=== PATIENT | male | born 1945 | race Caucasian/White ===

== ENCOUNTER 2018-05-13 20:37 | Inpatient (IN) | payer MEDICAID ==
[2018-05-13 21:40] VITALS: BP 95/50
--- NOTE | 2018-05-13 21:40 | NUR ---
URINE SPECIMEN SENT TO LAB
[2018-05-13 21:51] LABS: BASOPHILS 0.2 % (0-2); EOSINOPHILS 0.9 % (0-7); HEMATOCRIT 33.7 % (42.0-54.0); HEMOGLOBIN 10.8 g/dL (13.5-17.5); IMMATURE GRANULOCYTES 0.3 % (0-5); LYMPHOCYTES 2.6 % (15-50); MCH 31.8 pg (26.0-34.0); MCV 99.1 fL (80.0-100.0); MEAN PLATELET VOLUME 9.5 fL (7.4-10.4); MONOCYTES 7.7 % (2-11); NEUTROPHILS 88.3 % (40-80); PLATELET COUNT 160 10x3/uL (130-400); RDW 16.6 % (11.5-14.5); WBC 12.9 10x3/uL (4.8-10.8)
[2018-05-13 22:02] LABS: APPEARANCE HAZY (CLEAR); BILIRUBIN NEGATIVE (NEGATIVE); COLOR YELLOW (YELLOW); GLUCOSE NEGATIVE (NEGATIVE); KETONE NEGATIVE (NEGATIVE); NITRITE NEGATIVE (NEGATIVE); PROTEIN 1+ mg/dL (NEGATIVE); UROBILINOGEN NORMAL (NORMAL)
[2018-05-13 22:03] LABS: BACTERIA MANY /hpf (NONE SEEN); RED CELLS - URINE 0-5 /hpf (0-5); WHITE CELLS - URINE >50 /hpf (0-5)
[2018-05-13 22:04] LABS: UDS - AMPHET NEGATIVE QUAL (NEGATIVE); UDS - BARB NEGATIVE QUAL (NEGATIVE); UDS - BENZO NEGATIVE QUAL (NEGATIVE); UDS - COCAINE NEGATIVE QUAL (NEGATIVE); UDS - OPIATE NEGATIVE QUAL (NEGATIVE); UDS - PCP NEGATIVE QUAL (NEGATIVE); UDS - THC NEGATIVE QUAL (NEGATIVE)
[2018-05-13 22:15] LABS: ALBUMIN 2.3 g/dL (3.4-5.0); ALKALINE PHOSPHATASE 76 U/L (46-116); ALT (SGPT) 20 U/L (10-68); BILIRUBIN - TOTAL 0.37 mg/dL (0.2-1.3); CALC OSMOLALITY 298 mosm/kg (275-300); CALCIUM 8.9 mg/dL (8.5-10.1); CARBON DIOXIDE 23.3 mmol/L (21.0-32.0); CHLORIDE - SERUM 106 mmol/L (98-107); CREATININE - SERUM 2.3 mg/dL (0.6-1.3); GLUCOSE 134 mg/dL (74-106); POTASSIUM - SERUM 4.8 mmol/L (3.5-5.1); PROTEIN - SERUM 6.7 g/dL (6.4-8.2); SODIUM 140 mmol/L (136-145); UREA NITROGEN 62 mg/dL (7-18); eGFR NON AFRICAN AMERICAN 30 mL/min (90-120)
[2018-05-13 22:25] LABS: AMYLASE - SERUM 25 U/L (25-115); CKMB 0.5 U/L (0.0-3.6); CREATINE KINASE 20 UL (21-232); LIPASE 137 U/L (73-393); MAGNESIUM - SERUM 2.1 mg/dL (1.8-2.4); TROPONIN-I < 0.017 ng/mL (0.000-0.060)
--- NOTE | 2018-05-13 22:30 | NUR ---
PT SLEEPING ON BED, NO S/S OF ACUTE DISTRESS NOTED AT THIS TIME.
--- NOTE | 2018-05-13 23:15 | NUR ---
PT SLEEPING ON BED, NO S/S OF ACUTE DISTRESS NOTED.
[2018-05-14] VITALS: BP 97/50
--- NOTE | 2018-05-14 00:08 | NUR ---
REPORT RECEIVED FROM EMMANUEL BOSE
--- NOTE | 2018-05-14 00:20 | NUR ---
ARRIVED TO FLOOR VIA STRETCHER, ACCOMPANIEDY BY HOSPITAL STAFF.
[2018-05-14 04:00] VITALS: BP 116/65
[2018-05-14] MEDS ORDERED: FLOMAX0.4 MG PO (04:25)
[2018-05-14] MEDS ORDERED: IBUPROFEN600 MG PO (04:25)
[2018-05-14] MEDS ORDERED: LOPRESSOR25 MG PO (04:26)
[2018-05-14] MEDS ORDERED: REMERON15 MG PO (04:27)
[2018-05-14] MEDS ORDERED: LIPITOR20 MG PO (04:27)
[2018-05-14] MEDS ORDERED: MELATONIN 3 MG1 TAB PO (04:28)
[2018-05-14] MEDS ORDERED: BAYER CHEWABLE81 MG PO (04:29)
[2018-05-14] MEDS ORDERED: ACETAMINOPHEN325 MG PO (04:29)
[2018-05-14 06:32] LABS: BASOPHILS 0.2 % (0-2); EOSINOPHILS 1.5 % (0-7); HEMATOCRIT 35.5 % (42.0-54.0); HEMOGLOBIN 11.3 g/dL (13.5-17.5); IMMATURE GRANULOCYTES 0.2 % (0-5); LYMPHOCYTES 2.3 % (15-50); MCH 31.6 pg (26.0-34.0); MCHC 31.8 g/dL (31.0-37.0); MCV 99.2 fL (80.0-100.0); MEAN PLATELET VOLUME 9.5 fL (7.4-10.4); MONOCYTES 8.2 % (2-11); NEUTROPHILS 87.6 % (40-80); PLATELET COUNT 175 10x3/uL (130-400); RBC 3.58 10x6/uL (4.20-6.10); RDW 16.5 % (11.5-14.5)
[2018-05-14 06:58] LABS: ALBUMIN 2.2 g/dL (3.4-5.0); ANION GAP 19.4 mmol/L (8-16); BILIRUBIN - TOTAL 0.3 mg/dL (0.2-1.3); CARBON DIOXIDE 20.5 mmol/L (21.0-32.0); CREATININE - SERUM 2.2 mg/dL (0.6-1.3); POTASSIUM - SERUM 4.9 mmol/L (3.5-5.1); PROTEIN - SERUM 6.9 g/dL (6.4-8.2)
[2018-05-14 09:06] VITALS: BP 124/65
--- NOTE | 2018-05-14 10:25 | NUR ---
RESTS IN BED WITH EYES CLOSED. CALL LIGHT IN REACH. REVIEWED AND AGREE WITH ASSESMENT.
[2018-05-14 12:49] VITALS: BP 128/559
[2018-05-14 13:41] LABS: % SATURATION 10 % (15-55); IRON 15 ug/dl (35-150); TOTAL IRON BIND CAPACITY 137 ug/dl (260-445); UNSAT IRON BIND CAPACITY 122 ug/dl (150-375)
[2018-05-14 15:17] VITALS: Wt 64.5 kg
[2018-05-14 16:59] VITALS: BP 117/60
--- NOTE | 2018-05-14 18:38 | NUR ---
WITHOUT CHANGES OR DISTRESS AT THIS TIME.
--- NOTE | 2018-05-14 19:28 | NUR ---
PT ASLEEP. MOUTH OPEN. NO S/S OF DISTRESS. BEDLOW AND CALL LIGHT IN REACH. NAME AND DATE PLACED ON BOARD. PT AROUSES TO TOUCH AND VERBAL STIMULI. DENIES ANY NEEDS. BEDLOW AND CALL LIGHT IN REACH. WILL CPOC
[2018-05-14 20:00] VITALS: BP 97/48
--- NOTE | 2018-05-14 23:24 | NUR ---
PT DOESNT WANT ANY MEDICATIONS AT THIS TIME. PT SAID NO AND WENT BACK TO SLEEP. PT HAS NO S/S OF DISTRESS. DENIES ANY NEEDS. INHALE WHEEZES. PT BEDLOW AND CALL LIGHT INREACH. ROCEPHIN TO RIGHT WRIST. PT WILL CALL FOR ASSIST WHEN NEEDED. WILL CPOC
--- NOTE | 2018-05-15 03:55 | NUR ---
PT AWAKE AND ALERT. RIGHT WRIST IV OCCULEDED 10 TIMES WITHIN 30 MINS DUE TO PT CEREBAL PASLY. PT ASKED FOR A BREAK FROM THE BEEPING. UNHOOKED PT FOR A COUPLE HOURS. FLUSHED IV AND PLACED SWAB CAP. PT WILL CALL FOR ASSIST WHEN NEEDED. NOUSIHMENT WITHIN REACH. WILL CPOC
[2018-05-15 04:00] VITALS: BP 104/59
[2018-05-15 05:05] LABS: BASOPHILS 0.2 % (0-2); EOSINOPHILS 4.5 % (0-7); HEMATOCRIT 32.3 % (42.0-54.0); HEMOGLOBIN 10.4 g/dL (13.5-17.5); IMMATURE GRANULOCYTES 0.3 % (0-5); LYMPHOCYTES 7.9 % (15-50); MCH 31.7 pg (26.0-34.0); MCHC 32.2 g/dL (31.0-37.0); MCV 98.5 fL (80.0-100.0); MEAN PLATELET VOLUME 9.9 fL (7.4-10.4); MONOCYTES 9.4 % (2-11); NEUTROPHILS 77.7 % (40-80); PLATELET COUNT 165 10x3/uL (130-400); RBC 3.28 10x6/uL (4.20-6.10); RDW 16.3 % (11.5-14.5); WBC 10.2 10x3/uL (4.8-10.8)
[2018-05-15 05:25] LABS: ANION GAP 14.7 mmol/L (8-16); CALCIUM 8.7 mg/dL (8.5-10.1); CARBON DIOXIDE 22.6 mmol/L (21.0-32.0); CREATININE - SERUM 1.9 mg/dL (0.6-1.3); POTASSIUM - SERUM 4.3 mmol/L (3.5-5.1)
[2018-05-15 08:21] LABS: FOLATE (FOLIC ACID) - SERUM 9.2 ng/mL (>3.0)
[2018-05-15 08:51] VITALS: BP 119/53
--- NOTE | 2018-05-15 09:00 | NUR ---
PT RESTING IN BED. SHIFT ASSESSMENT PERFORMED. AM MEDICATIONS GIVEN ORDERED. NO COMPLICATIONS NOTED. COLOSTOMY EMPTIED, LIQUID STOOL NOTED.
--- NOTE | 2018-05-15 11:31 | NUR ---
PIV TO RIGHT FA INFILTRATED. PIV REMOVED WITH CATHETER TIP INTACT. 20G PIV RESITED X1 ATTEMPT TO RIGHT FA. PT TOLERATED WELL
[2018-05-15 12:48] VITALS: BP 90/45
--- NOTE | 2018-05-15 13:52 | NUR ---
STOOL SPECIMEN COLLECTED VIA PT COLOSTOMY. PT STICKER ATTACHED TO SPECIMEN CUP AT BEDSIDE. SPECIMEN SENT TO LAB.
[2018-05-15 16:49] VITALS: BP 116/57
--- NOTE | 2018-05-15 19:34 | NUR ---
RESUMED CARE OF PT, LYING IN BED RESPIRATIONS EVEN AND UNLABORED ON 2LPM VIA NC. 87 SR ON TELEMETRY. RIGHT FOREARM INFUSING NS @ 100. BROWNING TO GRAVITY AND ILLEOSTOMY WNL. CALL LIGHT IN REACH. SEE NURSE ASSESSMENT. NO NEEDS VOCIED AT THIS TIME.
[2018-05-15 20:00] VITALS: BP 112/63
[2018-05-16] VITALS: BP 96/51
[2018-05-16 04:00] VITALS: BP 109/54
[2018-05-16 06:06] LABS: BASOPHILS 0.4 % (0-2); EOSINOPHILS 3.7 % (0-7); HEMATOCRIT 28.9 % (42.0-54.0); HEMOGLOBIN 9.3 g/dL (13.5-17.5); IMMATURE GRANULOCYTES 0.7 % (0-5); LYMPHOCYTES 7.5 % (15-50); MCHC 32.2 g/dL (31.0-37.0); MEAN PLATELET VOLUME 9.3 fL (7.4-10.4); MONOCYTES 16.1 % (2-11); NEUTROPHILS 71.6 % (40-80); PLATELET COUNT 138 10x3/uL (130-400); RDW 15.9 % (11.5-14.5); WBC 8.4 10x3/uL (4.8-10.8)
[2018-05-16 06:22] LABS: ANION GAP 15.5 mmol/L (8-16); CARBON DIOXIDE 18.4 mmol/L (21.0-32.0); CREATININE - SERUM 1.7 mg/dL (0.6-1.3); POTASSIUM - SERUM 3.9 mmol/L (3.5-5.1)
[2018-05-16 06:39] LABS: MCV 96.3 fL (80.0-100.0)
[2018-05-16 08:56] VITALS: BP 99/48
--- NOTE | 2018-05-16 09:00 | NUR ---
PT RESTING IN BED, ASSISTED PT WITH TRAY SET UP. SHIFT ASSESSMENT PERFORMED. AM MEDS GIVEN ORDERED. EMPTIED OSTOMY, LIQUID STOOL NOTED. DENIES PAIN AT THIS TIME, DENIES ANY OTHER NEEDS AT THIS TIME, WILL CONT TO FOLLOW PLAN OF CARE
[2018-05-16 12:34] VITALS: BP 137/73; BP 98/39
--- NOTE | 2018-05-16 14:11 | NUR ---
Pt admitted from [facility] with stage 2 pressure injury on right buttock 2cm x 2cm and stage 2 pressure injury on left buttock 1cm x 1cm. Perineal area is excoriated. He has a f/c in place and has a colostomy. Contractures noted upper and lower extremities and foot drop. Recommended: -air overlay mattress -turn/reposition q 2 hours -mepilex sacral dressing on bottom -calmoseptine cream to perineal area Wound care will continue monitoring.
[2018-05-16 17:51] VITALS: BP 107/50
--- NOTE | 2018-05-16 19:22 | NUR ---
PT IN BED RESTING QUIETLY. EVEN AND UNLABORED RESPIRATIONS NOTED AT THIS TIME.
[2018-05-16 20:23] VITALS: BP 112/68
[2018-05-17 01:05] VITALS: BP 108/65
[2018-05-17 05:36] VITALS: BP 110/50
--- NOTE | 2018-05-17 07:10 | NUR ---
REPORT RECIEVED FROM CONTINUOUS MINING MACHINE OPERATOR. PATIENT LAYING ON BACK IN BED WITH EYES CLOSED AND BREATHING EVENLY. WILL CONTINUE WITH PLAN OF CARE. SR UP X 2 BED IN LOW POSITION AND CALL LIGHT IN REACH.
[2018-05-17 08:06] VITALS: BP 106/48
[2018-05-17 08:46] LABS: ANION GAP 16.3 mmol/L (8-16); BASOPHILS 0.5 % (0-2); CARBON DIOXIDE 17.5 mmol/L (21.0-32.0); CREATININE - SERUM 1.8 mg/dL (0.6-1.3); EOSINOPHILS 5.4 % (0-7); HEMATOCRIT 30.3 % (42.0-54.0); HEMOGLOBIN 9.6 g/dL (13.5-17.5); IMMATURE GRANULOCYTES 1.3 % (0-5); MCH 31.5 pg (26.0-34.0); MCHC 31.7 g/dL (31.0-37.0); MEAN PLATELET VOLUME 10.3 fL (7.4-10.4); MONOCYTES 16.5 % (2-11); NEUTROPHILS 68.3 % (40-80); PLATELET COUNT 163 10x3/uL (130-400); POTASSIUM - SERUM 3.8 mmol/L (3.5-5.1); RBC 3.05 10x6/uL (4.20-6.10); RDW 16.1 % (11.5-14.5); WBC 9.5 10x3/uL (4.8-10.8)
[2018-05-17 08:53] LABS: MCV 99.3 fL (80.0-100.0)
--- NOTE | 2018-05-17 11:08 | NUR ---
PATIENT AWAKE AND ALERT. PATIENT WATCHING TV. PATIENT DENIES ANY NEEDS OR PAIN. ASSESSMENT COMPLETED. WILL CONTINUE TO MONITOR. SR UP X 2 BED IN LOW POSITION AND CALL LIGHT IN REACH.
[2018-05-17 11:45] VITALS: BP 104/51
--- NOTE | 2018-05-17 12:30 | NUR ---
PATIENT SITTING UP IN BED EATING LUNCH. FRIEND AT BEDSIDE ASSISTING. PATIENT DENIES ANY NEEDS OR PAIN. WILL CONTINUE TO MONITOR. SR UP X 2 BED IN LOW POSITION AND CALL LIGHT IN REACH.
--- NOTE | 2018-05-17 14:45 | NUR ---
RT ILEOSTOMY BAG CHANGED. NO IRRITATION NOTED TO PERIWOUND. PATIENT TOLERATED WELL. PATIENT IS STABLE AND VSS. WILL CONTINUE TO MONITOR.
[2018-05-17 15:56] VITALS: BP 112/49
--- NOTE | 2018-05-17 17:50 | NUR ---
PATIENT LAYING IN BED ON RT SIDE WITH EYES CLOSED AND BREATHING EVENLY. PATIENT IS STABLE AND VSS. WILL CONTINUE TO MONITOR. SR UP X 2 BED IN LOW POSITION AND CALL LIGHT IN REACH.
--- NOTE | 2018-05-17 19:36 | NUR ---
EVENING ROUNDS COMPLETED. REPORT RECEIVED. PT LYING IN BED WITH EYES OPEN, RR EVEN AND UNLABORED. BED IN LOW POSITION. UPON ENTERING ROOM FOUND AIR MATTRESS TO BE PLACED PROPERLY UNDERNEATH PT HOWEVER IT WAS NOT CONNECTED TO SECONDARY OUTLET TO ALLOW IT TO INFLATE. CONNECTED THE FIRST STEP AIR LAY OVERMATTRESS. FOUND MEAL TRAY AT PT BEDSIDE, UNOPENED, PT REQUESTED TO HAVE FOOD FROM HIS MEAL TRAY. WHEN ASKED IF MEAL HAD BEEN FED TO HIM DUE TO HIS LEFT SIDED DEFICIT AND HE STATED NO. I THEN REHEATED THE PT'S MEAL IN THE MICROWAVE AND ASSISTED HIM IN EATING THE MEAL. AFTER FOUR BITES THE PT STATED THAT WOULD BE ENOUGH FOR NOW, I THEN STATED I WOULD COME BACK TO CHECK TO SEE IF HE WAS STILL HUNGRY. PT DENIES FURTHER NEEDS AND SWALLOWED HIS FOOD WITHOUT ANY SIGNS OF CHOKING OR DIFFICULTY. WILL CTM.
[2018-05-17 20:00] VITALS: BP 113/60
[2018-05-18] VITALS (7 sets, daily range): BP systolic 106–162; BP diastolic 49–67
--- NOTE | 2018-05-18 02:19 | NUR ---
RN NOTE: PATIENT RESTING COMFORTABLY IN BED. RESPIRATIONS ARE EVEN AND UNLABORED. NO S/S OF DISTRESS. NO C/O PAIN. CALL LIGHT WITHIN REACH. WILL CPOC.
--- NOTE | 2018-05-18 05:01 | NUR ---
PT LYING IN BED WITH EYES OPEN, RR EVEN AND UNLABORED. BED IN LOW POSITION. NO S/S OF DISTRESS NOTED. DENIES FURTHER NEEDS AT THIS TIME. FIRST STEP OVERLAY MATTRESS IN PLACE AND CONNECTED, CALL LIGHT IN REACH. WILL CTM.
--- NOTE | 2018-05-18 07:10 | NUR ---
PATIENT LAYING IN BED ON BACK WITH EYES CLOSED AND BREATHING EVENLY . VSS . WILL CONTINUE WITH PLAN OF CARE. SR UP X 2 BED IN LOW POSTION AND CALL LIGHT IN REACH.
--- NOTE | 2018-05-18 10:00 | NUR ---
MICRO PERSONNEL TO UNIT. STATES THAT PATIENT HAS UTI ECOLI WITH RESISTANCE AND NEEDS TO BE ON CONTACT PRECAUTIIONS . EXPLAINED TO PATIENT AND CONTACT PRECAUTIONS INITIATED.
--- NOTE | 2018-05-18 14:08 | NUR ---
PATIENT SITTING UP IN BED WATCHING TV. PATIENT IS STABLE AND VSS. PATIENT DENIES ANY NEEDS OR PAIN . WILL CONTINUE TO MONITOR. SR UP X 2 BED IN LOW POSTION AND CALL LIGHT IN REACH.
--- NOTE | 2018-05-18 19:32 | NUR ---
EVENING ROUNDS COMPLETED. REPORT RECEIVED. PT SITTING UP IN BED WITH EYES OPEN, RR EVEN AND UNLABORED. BED IN LOW POSITION. NO S/S OF DISTRESS. 57 SINUS ON TELEMETRY. INTRODUCED SELF TO PT. PT DENIES FURTHER NEEDS AT THIS TIME. CALL LIGHT IN REACH. WILL CTM.
--- NOTE | 2018-05-19 00:24 | NUR ---
RIGHT WRIST IV REMOVED, RESITED IN LEFT HAND BY COLT ARREOLA RN. NO S/S OF DISTRESS NOTED. CALL LIGHT IN REACH. WILL CTM.
--- NOTE | 2018-05-19 01:59 | NUR ---
PT SITTING UP IN BED WITH EYES OPEN, RR EVEN AND UNLABORED. BED IN LOW POSITION. ORDERED IV FLUIDS INFUSING ORDERED THROUGH LEFT HAND PIV. NO S/S OF DISTRESS NOTED. CALL LIGHT IN REACH. WILL CTM.
[2018-05-19 03:53] VITALS: BP 143/63
--- NOTE | 2018-05-19 05:00 | NUR ---
ASSESSMENT REVIEWED AND IN AGREEMENT. PT RESTING WITH NO DISTRESS. MONITOR AND CPOC.
[2018-05-19 05:50] LABS: ANION GAP 13.8 mmol/L (8-16); CALCIUM 8.3 mg/dL (8.5-10.1); CARBON DIOXIDE 16.2 mmol/L (21.0-32.0); CREATININE - SERUM 1.3 mg/dL (0.6-1.3)
--- NOTE | 2018-05-19 06:32 | NUR ---
PT SITTING UP IN BED WITH EYES CLOSED, RR EVEN AND UNLABORED. NO S/S OF DISTRESS NOTED. BED IN LOW POSITION. SIDE RAILS UP X2. CALL LIGHT IN REACH. WILL CTM.
--- NOTE | 2018-05-19 07:10 | NUR ---
PATIENT LAYING IN BED ON BACK WITH EYES CLOSED AND BREATHING EVENLY. VSS. WILL CONTINUE WITH PLAN OF CARE. SR UP X 2 BED IN LOW POSITION AND CALL LIGHT IN REACH.
[2018-05-19 07:15] LABS: BASOPHILS 0.6 % (0-2); EOSINOPHILS 4.8 % (0-7); HEMATOCRIT 30.7 % (42.0-54.0); IMMATURE GRANULOCYTES 3.2 % (0-5); LYMPHOCYTES 9.3 % (15-50); MCH 31.5 pg (26.0-34.0); MCHC 32.6 g/dL (31.0-37.0); MEAN PLATELET VOLUME 9.7 fL (7.4-10.4); MONOCYTES 15.6 % (2-11); NEUTROPHILS 66.5 % (40-80); PLATELET COUNT 193 10x3/uL (130-400); RBC 3.17 10x6/uL (4.20-6.10); RDW 15.5 % (11.5-14.5)
[2018-05-19 07:16] LABS: MCV 96.8 fL (80.0-100.0)
[2018-05-19 09:41] VITALS: BP 142/60
[2018-05-19 11:45] VITALS: BP 153/62
--- NOTE | 2018-05-19 13:00 | NUR ---
PATIENT IS STABLE AND VSS. NO CHANGES. WILL CONTINUE TO MONITOR.
[2018-05-19 15:58] VITALS: BP 136/59
--- NOTE | 2018-05-19 17:00 | NUR ---
PATIENT SITTING UP IN BED WATCHING TV. PATIENT DENIES ANY NEEDS OR PAIN. WILL CONTINUE TO MONITOR. SR UP X 2 BED IN LOW POSITION AND CALL LIGHT IN REACH.
--- NOTE | 2018-05-19 19:39 | NUR ---
EVENING ROUNDS COMPLETED. REPORT RECEIVED. PT SITTING UP IN BED WITH EYES CLOSED, RR EVEN AND UNLABORED. SIDE RAILS UP X2. NORMAL SALINE INFUISING ORDERED THROUGH LEFT HAND PIV. NO S/S OF DISTRESS NOTED. CALL LIGHT IN REACH, WILL CTM. CPOC.
[2018-05-19 19:55] VITALS: BP 135/53
[2018-05-19 23:50] VITALS: BP 122/50
--- NOTE | 2018-05-20 02:10 | NUR ---
I have reviewed this patient and I concur with the Shift Assessment completed by the Licensed Practical Nurse today this shift.
--- NOTE | 2018-05-20 02:13 | NUR ---
I have reviewed this patient and I concur with the Shift Assessment completed by the Licensed Practical Nurse today this shift.
[2018-05-20 03:45] VITALS: BP 118/57
--- NOTE | 2018-05-20 07:15 | NUR ---
PATIENT LAYING IN BED WITH EYES CLOSED AND BREATHING EVENLY. VSS. WILL CONTINUE WITH PLAN OF CARE. SR UP X 2 BED IN LOW POSTION AND CALL LIGHT IN REACH.
[2018-05-20 08:03] VITALS: BP 127/63
[2018-05-20 11:07] LABS: BASOPHILS 0.6 % (0-2); EOSINOPHILS 6.5 % (0-7); HEMATOCRIT 30.6 % (42.0-54.0); HEMOGLOBIN 9.9 g/dL (13.5-17.5); IMMATURE GRANULOCYTES 3.8 % (0-5); LYMPHOCYTES 10.2 % (15-50); MCH 31.8 pg (26.0-34.0); MCHC 32.4 g/dL (31.0-37.0); MCV 98.4 fL (80.0-100.0); MEAN PLATELET VOLUME 9.3 fL (7.4-10.4); MONOCYTES 10.8 % (2-11); NEUTROPHILS 68.1 % (40-80); PLATELET COUNT 221 10x3/uL (130-400); RBC 3.11 10x6/uL (4.20-6.10); RDW 15.6 % (11.5-14.5); WBC 8.6 10x3/uL (4.8-10.8)
[2018-05-20 11:16] LABS: ANION GAP 14.4 mmol/L (8-16); CALCIUM 8.1 mg/dL (8.5-10.1); CARBON DIOXIDE 20.2 mmol/L (21.0-32.0); CREATININE - SERUM 1.1 mg/dL (0.6-1.3); POTASSIUM - SERUM 3.6 mmol/L (3.5-5.1)
[2018-05-20 12:01] VITALS: BP 134/57
--- NOTE | 2018-05-20 12:34 | MORECARE ---
CASE MANAGEMENT DISCHARGE SUMMARY PATIENT: WING ELIAS UNIT: [id number] ADM DATE: 05/13/18 AGE: 73 : 43 SEX: M ROOM/BED: D.2122 AUTHOR: SCAR TORRES PHYSICIAN: REFERRING PHYSICIAN: THAD GODWIN MD DATE OF SERVICE: 05/20/18 Discharge Plan Patient Name: WING ELIAS [facility] [facility] 1945 Planned Disposition: Nursing Facility IDRIS Cert Anticipated Discharge Date: 05/23/18 Discharge Date: Expected LOS: 10 Initial Reviewer: [email or web address] Initial Review Date: 05/20/2018 Generated: 05/20/18 1:33 pm External Providers External Provider: [facility] Next Contact Date: 05/20/2018 Service Request Date: Service Type: Resolution: Reviewer: Comments: Patient Name: WING ELIAS Page [phone] at 1234 All edits/amendments must be made on the electronic document DICTATION DATE: 05/20/18 1233 INSERT CUTTER: SUNITA 05/20/18 1233 RPT#: [id number] [place] DATE: STATUS: ADM IN [facility] [address] [place] [address] END OF REPORT
--- NOTE | 2018-05-20 12:41 | MORECARE ---
CASE MANAGEMENT DISCHARGE SUMMARY PATIENT: WING ELIAS UNIT: [id number] ADM DATE: 05/13/18 AGE: 73 : 43 SEX: M ROOM/BED: D.2123 AUTHOR: SCAR TORRES PHYSICIAN: REFERRING PHYSICIAN: THAD GODWIN MD DATE OF SERVICE: 05/20/18 Discharge Plan Patient Name: WING ELIAS [facility] [facility] 1945 Planned Disposition: Nursing Facility IDRIS Cert Anticipated Discharge Date: 05/23/18 Discharge Date: Expected LOS: 10 Initial Reviewer: [email or web address] Initial Review Date: 05/20/2018 Generated: 05/20/18 1:41 pm DCPIA - Discharge Planning Initial Assessment Updated by [email or web address]: Zeke Patel on 05/20/18 12:39 pm * Is the patient Alert and Oriented? Yes * How many steps to enter\exit or inside your home? NONE * PCP DR. SCHUSTER * [facility] * Preadmission Environment Cost Control Analyst Long-Term * Facility Name [facility] * ADLs Total Dependent * Equipment Other * Other Equipment ALL MEDICAL EQUIPMENT PROVIDED BY FACILITY * List name and contact numbers for known caregivers / representatives who currently or will assist patient after discharge: MOJGAN MACK, SISTER, * Verbal permission to speak to the caregivers and representatives has been obtained from the patient. N/A * Community resources currently utilized None * Please name any agencies selected above. NONE * Additional services required to return to the preadmission environment? No * Can the patient safely return to the preadmission environment? Yes * Has this patient been hospitalized within the prior 30 days at any hospital? No Last DP export: 05/20/18 11:34 am Patient Name: WING ELIAS Page [phone] at 1241 All edits/amendments must be made on the electronic document DICTATION DATE: 05/20/18 1240 OCCUPATIONAL THERAPY AIDE: SUNITA 05/20/18 1240 RPT#: [id number] DC DATE: STATUS: ADM IN [facility] [address] [place] [address] END OF REPORT
--- NOTE | 2018-05-20 12:48 | MORECARE ---
CASE MANAGEMENT DISCHARGE SUMMARY PATIENT: WING ELIAS UNIT: [id number] ADM DATE: 05/13/18 AGE: 73 : 43 SEX: M ROOM/BED: D.2123 AUTHOR: BRIANDOC PHYSICIAN: REFERRING PHYSICIAN: THAD GODWIN MD DATE OF SERVICE: 05/20/18 Discharge Plan Patient Name: WING ELIAS [facility] [facility] 1945 Planned Disposition: Nursing Facility IDRIS Cert Anticipated Discharge Date: 05/23/18 Discharge Date: Expected LOS: 10 Initial Reviewer: [id number] Initial Review Date: 05/20/2018 Generated: 05/20/18 1:48 pm Comments DCP- Discharge Planning Updated by [email or web address]: Zeke Patel on 05/20/18 11:[address] Patient Name: WING ELIAS Admission Status: ER Accout number: [id number] Admission Date: 05-13-2018 : 1945 Admission Diagnosis:DISORIENTATION, UNSPECIFIED Attending: THAD GODWIN Current LOS: 7 Anticipated DC Date: 05-23-2018 Planned Disposition: Nursing Facility IDRIS Cert Primary Insurance: MEDICAID [place] PLANNED EXTERNAL PROVIDER: [facility], LONG TERM CARE MEDICAID BED Discharge Planning Comments: CM SPOKE TO CAROLINE CRAIG OF [facility] WHO INFORMED CM THAT 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 CM SPOKE TO PT IN ROOM WHO VERIFIED HE HAS LIVED AT [facility] FOR "A LONG TIME" AND HE PLANS TO RETURN THERE AT DISCHARGE. CHOICE LISTING PROVIDED OF [facility] AND [facility] FACILITIES. CHOICE LETTER PROVIDED AND EXPLAINED. PT IS NOT ABLE TO SIGN. CM PROVIDED AND DISCUSSED IMPORTANT MESSAGE FROM MEDICARE. CM FAXED HOSPITAL UPDATE TO [facility] AT [phone]. FOR DISCHARGE BACK TO [facility], FAX DISCHARGE INFORMATION TO [facility] AT [phone]; NURSE REPORT TO BE CALLED TO [facility] AT [phone]. PT TO TRANSPORT VIA AMBULANCE. Office System Analyst: Zeke Patel DCPIA - Discharge Planning Initial Assessment Updated by [id number]: Zeke Patel on 05/20/18 12:39 pm * Is the patient Alert and Oriented? Yes * How many steps to enter\\exit or inside your home? NONE * PCP DR. SCHUSTER * [facility] * Preadmission Environment [facility] * Facility Name [facility] * ADLs Total Dependent * Equipment Other * Other Equipment ALL MEDICAL EQUIPMENT PROVIDED BY FACILITY * List name and contact numbers for known caregivers / representatives who currently or will assist patient after discharge: MOJGAN MACK, SISTER, * Verbal permission to speak to the caregivers and representatives has been obtained from the patient. N/A * Community resources currently utilized None * Please name any agencies selected above. NONE * Additional services required to return to the preadmission environment? No * Can the patient safely return to the preadmission environment? Yes * Has this patient been hospitalized within the prior 30 days at any hospital? No Coverage Notice Reviewer: [id number] Taylor Patel Notice Issued Date-Time: 05/20/2018 12:00 Notice Type: Patient Choice Letter Notice Delivered To: Patient Relationship to Patient: Platform Inspector Name: Delivery Method: HAND - Hand Delivered Kathrin Days: Prior Verbal Notification: Recipient Understood Notice: Yes Recipient Signature: Med Rec Note Co-signed by Attending: Coverage Notice Comment: [facility] Reviewer: [id number] Taylor Patel Notice Issued Date-Time: 05/20/2018 12:00 Notice Type: IM Discharge Notice Notice Delivered To: Patient Relationship to Patient: Platform Inspector Name: Delivery Method: HAND - Hand Delivered Kathrin Days: Prior Verbal Notification: Recipient Understood Notice: Yes Recipient Signature: Med Rec Note Co-signed by Attending: Coverage Notice Comment: Last DP export: 05/20/18 11:41 am Patient Name: WING ELIAS Page [id number] at 1248 All edits/amendments must be made on the electronic document DICTATION DATE: 05/20/181247 WAREHOUSE OPERATOR: SUNITA 05/20/188 RPT#: [id number] DC DATE: STATUS: ADM IN [facility] [address] [place] [address] END OF REPORT
--- NOTE | 2018-05-20 13:00 | NUR ---
PATIENT LAYING IN BED AWAKE AND WATCHING TV. VSS. PATIENT DENIES ANY NEEDS OR PAIN. WILL CONTINUE TO MONITOR.
--- NOTE | 2018-05-20 15:09 | NUR ---
Nutrition follow-up: Diet: Regular mechanical soft with nectar thick liquids PO Intake ~50-75% of meals Labs reviewed Wt: 142# Ileostomy RDN following.
[2018-05-20 15:40] VITALS: BP 130/78
[2018-05-20 16:53] LABS: APPEARANCE HAZY (CLEAR); BILIRUBIN NEGATIVE (NEGATIVE); COLOR YELLOW (YELLOW); GLUCOSE NEGATIVE (NEGATIVE); KETONE NEGATIVE (NEGATIVE); NITRITE NEGATIVE (NEGATIVE); PROTEIN TRACE mg/dL (NEGATIVE); SPECIFIC GRAVITY 1.015 (1.005-1.020); UROBILINOGEN NORMAL (NORMAL)
[2018-05-20 17:03] LABS: WHITE CELLS - URINE 25-50 /hpf (0-5)
[2018-05-20 17:04] LABS: BACTERIA MODERATE /hpf (NONE SEEN); RED CELLS - URINE 0-5 /hpf (0-5)
--- NOTE | 2018-05-20 19:45 | NUR ---
RESUMED CARE OF PT, LYING IN BED RESPIRATIONS EVEN AND UNLABORED ON ROOM AIR. LEFT HAND INFUSING NS @ 50. 61 SR ON TELEMETRY. BROWNING TO GRAVITY AND COLOSTOMY WNL. 1ST STEP OVERLAY INFLATED. CALL LIGHT IN REACH. SEE NURSE ASSESSMENT.
[2018-05-20 20:00] VITALS: BP 138/51
[2018-05-21] VITALS: BP 119/50; BP 132/68
[2018-05-21 04:00] VITALS: BP 115/55
[2018-05-21 05:53] LABS: BASOPHILS 0.6 % (0-2); EOSINOPHILS 6.8 % (0-7); HEMATOCRIT 31.3 % (42.0-54.0); HEMOGLOBIN 10.1 g/dL (13.5-17.5); IMMATURE GRANULOCYTES 2.5 % (0-5); LYMPHOCYTES 8.2 % (15-50); MCH 31.5 pg (26.0-34.0); MCHC 32.3 g/dL (31.0-37.0); MCV 97.5 fL (80.0-100.0); MEAN PLATELET VOLUME 9.1 fL (7.4-10.4); MONOCYTES 12.5 % (2-11); NEUTROPHILS 69.4 % (40-80); PLATELET COUNT 235 10x3/uL (130-400); RBC 3.21 10x6/uL (4.20-6.10); RDW 15.5 % (11.5-14.5)
[2018-05-21 06:21] LABS: ALBUMIN 1.8 g/dL (3.4-5.0); ANION GAP 15.8 mmol/L (8-16); BILIRUBIN - TOTAL 0.19 mg/dL (0.2-1.3); CALCIUM 8.1 mg/dL (8.5-10.1); CARBON DIOXIDE 18.7 mmol/L (21.0-32.0); CREATININE - SERUM 1.1 mg/dL (0.6-1.3); POTASSIUM - SERUM 3.5 mmol/L (3.5-5.1); PROTEIN - SERUM 5.6 g/dL (6.4-8.2)
--- NOTE | 2018-05-21 07:36 | NUR ---
PT RESTING COMFORTABLY IN BED. EASILY AROUSES TO VOICE. RESP EVEN AND NONLABORED ON RA. LT HAND IV INFUSING NS AT 50CC/HR. MONITOR SHOWING SR 65. BROWNING DRAINING YELLOW URINE TO GRAVITY. PT ON FIRST STEP OVERLAY. CALL LIGHT IN REACH, NAD NOTED, WILL CONTINUE TO MONITOR.
--- NOTE | 2018-05-21 08:49 | NUR ---
AM MEDS GIVEN AT THIS TIME. PT ABLE TO SWALLOW PILLS WHOLE. FED PT HIS BREAKFAST. PT A/O X4, RESP EVEN AND NONLABORED ON RA. EMPTIED 250ML OUT OF ILEUSTOMY BAG. LT HAND IV INFUSING NS AT 50CC/HR. PT DENIES ANY NEEDS AT THIS TIME. CALL LIGHT IN REACH, NAD NOTED, WILL CONTINUE TO MONITOR.
[2018-05-21 09:57] VITALS: BP 123/65
--- NOTE | 2018-05-21 16:31 | NUR ---
PT RESTING COMFORTABLY IN BED, NAD NOTED, CALL LIGHT IN REACH.
[2018-05-21 18:48] VITALS: BP 130/78
--- NOTE | 2018-05-21 19:25 | NUR ---
PT ASLEEP. AROUSES TO NURSE IN ROOM. DENIES ANY NEEDS. NO S/S OF DISTRESS. NOURISHMENT OFFERED. NAME AND DATE PLACED ON BOARD. PT BEDLOW AND CALL LIGHT IN REACH. NO S/S OF DISTRESS. WILL CPOC
[2018-05-21 20:00] VITALS: BP 135/63
--- NOTE | 2018-05-22 01:46 | NUR ---
PT ASLEEP. EMPTIED OSTOMY 80CC THICK BROWN STOOL. PT HAS NO S/S OF DISTRESS. BEDLOW AND CALL LIGHT IN REACH. PT WILL CALL FOR ASSIST WHEN NEEDED. WILL CPOC
[2018-05-22 04:00] VITALS: BP 142/68
[2018-05-22 06:00] LABS: BASOPHILS 0.7 % (0-2); HEMATOCRIT 30.1 % (42.0-54.0); IMMATURE GRANULOCYTES 2.1 % (0-5); LYMPHOCYTES 7.3 % (15-50); MCH 32.1 pg (26.0-34.0); MCHC 33.2 g/dL (31.0-37.0); MCV 96.5 fL (80.0-100.0); MEAN PLATELET VOLUME 8.9 fL (7.4-10.4); MONOCYTES 12.4 % (2-11); NEUTROPHILS 69.5 % (40-80); PLATELET COUNT 231 10x3/uL (130-400); RBC 3.12 10x6/uL (4.20-6.10); RDW 15.3 % (11.5-14.5); WBC 9.8 10x3/uL (4.8-10.8)
--- NOTE | 2018-05-22 06:02 | NUR ---
MERREM INFUSED ORDERED. PT REPOSTIONED. PT WILL CALL FOR ASSIST WHEN NEEDED. NO S/S OF DISTRESS. PT WILL CALL FOR ASSIST WHEN NEEDED. WILL CPOC
[2018-05-22 06:34] LABS: ALBUMIN 1.8 g/dL (3.4-5.0); ALKALINE PHOSPHATASE 54 U/L (46-116); ALT (SGPT) 10 U/L (10-68); BILIRUBIN - TOTAL 0.17 mg/dL (0.2-1.3); CALC OSMOLALITY 292 mosm/kg (275-300); CALCIUM 7.8 mg/dL (8.5-10.1); CARBON DIOXIDE 20.9 mmol/L (21.0-32.0); CREATININE - SERUM 0.9 mg/dL (0.6-1.3); GLUCOSE 95 mg/dL (74-106); POTASSIUM - SERUM 3.3 mmol/L (3.5-5.1); PROTEIN - SERUM 5.4 g/dL (6.4-8.2); SODIUM 147 mmol/L (136-145); UREA NITROGEN 16 mg/dL (7-18); eGFR NON AFRICAN AMERICAN 87 mL/min (90-120)
[2018-05-22 06:49] LABS: CHLORIDE - SERUM 115 mmol/L (98-107)
[2018-05-22 09:34] VITALS: BP 162/75
--- NOTE | 2018-05-22 14:41 | NUR ---
LEFT HAND IV CAME OUT WITH CATH INTACT. UNABLE TO RESTART NEW IV. LEFT VOICEMAIL MESSAGE FOR JOSE JUAN VASCULAR ACCESS NURSE.
--- NOTE | 2018-05-22 15:05 | NUR ---
I have reviewed this patient and I concur with the Shift Assessment completed by the Licensed Practical Nurse today this shift.
--- NOTE | 2018-05-22 17:31 | NUR ---
ER NURSE UNABLE TO GET IV AFTER MULTIPLE ATTEMPTS. SHE STATES SHE WILL SEND SOMEONE ELSE.
--- NOTE | 2018-05-22 18:11 | NUR ---
ANOTHER ER NURSE TRIED THREE MORE TIMES TO GET IV AND SHE COULD NOT. SPOKE WITH GRAHAM ARELLANO AND SHE STATES TO LEAVE IV OUT PT IS GETTING DC'D TOMORROW. SHE STATES MERREM CAN BE STOPPED.
--- NOTE | 2018-05-22 19:41 | NUR ---
PT RESTING IN BED. ASSISTED WITH REPOSTIONING. GAVE PT HIS CALL LIGHT. NOURISHMENT OFFERED. PT IS AAO, SPEECH DIFFICULT TO UNDERSTAND AT TIMES, CHROIC BROWNING NOTED. EMPTIED 40CC FROM OSTOMY BAG. BREAKDOWN NOTED UNDER BAG AND UNDER ABDOMEN FOLD. PT HAS NO S/S OF DISTRESS. BEDLOW AND CALL LIGHT INREACH. NAME AND DATE PLACED ON BOARD. WILL CPOC
[2018-05-22 20:00] VITALS: BP 141/63
[2018-05-23] VITALS: BP 147/63
--- NOTE | 2018-05-23 00:21 | NUR ---
PT AAO, REPOSITIONED AND ELEVATED LEFT ARM. PT HAS NO IV ACCESS. ROOM AIR. SEVERAL SMALL WOUNDS SOME SCABBED AND SOME OPEN NOTED ON BUTTOCK. LEFT HAND SORES AND DISCOLORATION. PT LEFT HAND HAS EDEMA AND CONTRACTION. FOOT DROP NOTED. PT COUGHING. PRODUCTIVE AT TIMES. THICK. HOB ABOVE 40 FOR DRINKING, THICKEND LIQUIDS. LUNGS RHONCI. PT HAS CHRONIC BROWNING AND OSTOMY WITH DARK BROWN LOOSE STOOL. PT HAS CALL LIGHT INREACH. LINA AND CALL LIGHT INREACH. PT WILL CALL FOR ASSIST WHEN NEEDED. WILL CPOC
--- NOTE | 2018-05-23 03:28 | NUR ---
PT REPOSTIONED. PT HAS NO S/S OF DISTRESS. NOURISHMENT OFFERED. MOUTH DRY. PT WILL CALL FOR ASSIST. WHEN NEEDED. WILL CPOC
[2018-05-23 04:00] VITALS: BP 136/64
[2018-05-23 05:03] LABS: BASOPHILS 0.5 % (0-2); EOSINOPHILS 6.3 % (0-7); HEMATOCRIT 29.6 % (42.0-54.0); HEMOGLOBIN 9.7 g/dL (13.5-17.5); IMMATURE GRANULOCYTES 1.4 % (0-5); LYMPHOCYTES 8.2 % (15-50); MCH 31.6 pg (26.0-34.0); MCHC 32.8 g/dL (31.0-37.0); MCV 96.4 fL (80.0-100.0); MEAN PLATELET VOLUME 8.7 fL (7.4-10.4); NEUTROPHILS 72.6 % (40-80); PLATELET COUNT 224 10x3/uL (130-400); RBC 3.07 10x6/uL (4.20-6.10); RDW 15.5 % (11.5-14.5)
[2018-05-23 05:27] LABS: ALBUMIN 1.8 g/dL (3.4-5.0); ALKALINE PHOSPHATASE 66 U/L (46-116); ALT (SGPT) 9 U/L (10-68); BILIRUBIN - TOTAL 0.22 mg/dL (0.2-1.3); CALC OSMOLALITY 291 mosm/kg (275-300); CALCIUM 7.8 mg/dL (8.5-10.1); CARBON DIOXIDE 23.1 mmol/L (21.0-32.0); CHLORIDE - SERUM 114 mmol/L (98-107); CREATININE - SERUM 0.8 mg/dL (0.6-1.3); GLUCOSE 91 mg/dL (74-106); PROTEIN - SERUM 5.6 g/dL (6.4-8.2); SODIUM 146 mmol/L (136-145); UREA NITROGEN 14 mg/dL (7-18); eGFR NON AFRICAN AMERICAN > 90 mL/min (90-120)
--- NOTE | 2018-05-23 05:31 | NUR ---
PT REPOSITIONED. BROWNING EMPTIED. 1000 OF CONCENTRATED URINE. YELLOW. 60CC OF DARK BROWN LOOSE STOOL EMPTIED FROM OSTOMY. OFFERED NOURISHMENT. PT HAS NO S/S OF DISTRESS. PT BEDLOW AND CALL LIGHT IN REACH. WILL CPOC
[2018-05-23 05:37] LABS: POTASSIUM - SERUM 3.7 mmol/L (3.5-5.1)
[2018-05-23 08:03] VITALS: BP 132/62
[2018-05-23 11:53] VITALS: BP 126/68
--- NOTE | 2018-05-23 12:00 | NUR ---
MEPILEX PLACED ON PT'S BUTTOCKS. PT FED LUNCH. PT ATE 25%.
--- NOTE | 2018-05-23 14:51 | NUR ---
I have reviewed this patient and I concur with the Shift Assessment completed by the Licensed Practical Nurse today this shift.
--- NOTE | 2018-05-23 15:47 | MORECARE ---
CASE MANAGEMENT DISCHARGE SUMMARY PATIENT: WING ELIAS UNIT: [id number] ADM DATE: 05/13/18 AGE: 73 : 43 SEX: M ROOM/BED: D.0923 AUTHOR: BRIANDOC PHYSICIAN: REFERRING PHYSICIAN: THAD GODWIN MD DATE OF SERVICE: 05/23/18 Discharge Plan Patient Name: WING ELIAS [facility] [facility] 1945 Planned Disposition: Nursing Facility IDRIS Cert Anticipated Discharge Date: 05/23/18 Discharge Date: Expected LOS: 10 Initial Reviewer: [email or web address] Initial Review Date: 05/20/2018 Generated: 05/23/18 4:46 pm Comments DCP- Discharge Planning Updated by [email or web address]: Zeke Patel on 05/20/18 11:[address] Patient Name: WING ELIAS Admission Status: ER Accout number: [id number] Admission Date: 05-13-2018 : 1945 Admission Diagnosis:DISORIENTATION, UNSPECIFIED Attending: THAD GODWIN Current LOS: 7 Anticipated DC Date: 05-23-2018 Planned Disposition: Nursing Facility IDRIS Cert Primary Insurance: MEDICAID [place] PLANNED EXTERNAL PROVIDER: [facility], LONG TERM CARE MEDICAID BED Discharge Planning Comments: CM SPOKE TO CAROLINE CRAIG OF [facility] WHO INFORMED CM THAT 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 CM SPOKE TO PT IN ROOM WHO VERIFIED HE HAS LIVED AT [facility] FOR "A LONG TIME" AND HE PLANS TO RETURN THERE AT DISCHARGE. CHOICE LISTING PROVIDED OF ASSISTED AND CUSTODIAL FACILITIES. CHOICE LETTER PROVIDED AND EXPLAINED. PT IS NOT ABLE TO SIGN. CM PROVIDED AND DISCUSSED IMPORTANT MESSAGE FROM MEDICARE. CM FAXED HOSPITAL UPDATE TO [facility] AT [phone]. FOR DISCHARGE BACK TO [facility], FAX DISCHARGE INFORMATION TO [facility] AT [phone]; NURSE REPORT TO BE CALLED TO [facility] AT [phone]. PT TO TRANSPORT VIA AMBULANCE. Vp Software Engineering: Zeke Patel DCPIA - Discharge Planning Initial Assessment Updated by [email or web address]: Zeke Patel on 05/20/18 12:39 pm * Is the patient Alert and Oriented? Yes * How many steps to enter\\exit or inside your home? NONE * PCP DR. SCHUSTER * [facility] * Preadmission Environment [employer] [facility] * Facility Name [facility] * ADLs Total Dependent * Equipment Other * Other Equipment ALL MEDICAL EQUIPMENT PROVIDED BY FACILITY * List name and contact numbers for known caregivers / representatives who currently or will assist patient after discharge: MOJGAN MACK, SISTER, * Verbal permission to speak to the caregivers and representatives has been obtained from the patient. N/A * Community resources currently utilized None * Please name any agencies selected above. NONE * Additional services required to return to the preadmission environment? No * Can the patient safely return to the preadmission environment? Yes * Has this patient been hospitalized within the prior 30 days at any hospital? No Coverage Notice Reviewer: [id number] Taylor Patel Notice Issued Date-Time: 05/20/2018 12:00 Notice Type: Patient Choice Letter Notice Delivered To: Patient Relationship to Patient: Patient Registration Supervisor Name: Delivery Method: HAND - Hand Delivered Kathrin Days: Prior Verbal Notification: Recipient Understood Notice: Yes Recipient Signature: Med Rec Note Co-signed by Attending: Coverage Notice Comment: [facility] Reviewer: [email or web address] Taylor Patel Notice Issued Date-Time: 05/20/2018 12:00 Notice Type: IM Discharge Notice Notice Delivered To: Patient Relationship to Patient: Patient Registration Supervisor Name: Delivery Method: HAND - Hand Delivered Kathrin Days: Prior Verbal Notification: Recipient Understood Notice: Yes Recipient Signature: Med Rec Note Co-signed by Attending: Coverage Notice Comment: Last DP export: 05/20/18 11:48 am Patient Name: WING ELIAS Page [id number] at 1547 All edits/amendments must be made on the electronic document DICTATION DATE: 05/23/18 1546 OBSTETRICS/GYNECOLOGY NURSE: SUNITA 05/23/18 1546 RPT#: [id number] DC DATE: STATUS: ADM IN [facility] [address] [place] [address] END OF REPORT
--- NOTE | 2018-05-23 15:57 | MORECARE ---
CASE MANAGEMENT DISCHARGE SUMMARY PATIENT: WING ELIAS UNIT: [id number] ADM DATE: 05/13/18 AGE: 73 : 43 SEX: M ROOM/BED: D.2123 AUTHOR: BRIANDOC PHYSICIAN: REFERRING PHYSICIAN: THAD GODWIN MD DATE OF SERVICE: 05/23/18 Discharge Plan Patient Name: WING ELIAS Facility: [facility]:[place] : 1945 Planned Disposition: Nursing Facility IDRIS Cert Anticipated Discharge Date: 05/23/18 Discharge Date: Expected LOS: 10 Initial Reviewer: [email or web address] Initial Review Date: 05/20/2018 Generated: 05/23/18 4:57 pm Comments DCP- Discharge Planning Updated by [id number]: Zeke Patel on 05/23/18 2:[address] Patient Name: WING ELIAS Encounter No: [id number] : 1945 Primary Insurance: MEDICAID [place] Anticipated DC Date: 05-23-2018 Planned Disposition: Nursing Facility IDRIS Cert External Planned Provider: [facility], [facility] TERM [facility] MEDICAID BED Discharge Planning Comments: CM RECEIVED DISCHARGE ORDER, CALLED AND SPOKE TO CAROLINE CRAIG OF [facility], WHO INFORMED CM THAT THEY WOULD ACCEPT PT TODAY. CM VERIFIED PT IS STILL IN ISOLATION. CM SPOKE TO PT IN ROOM WHO IS IN AGREEMENT WITH DISCHARGE BACK TO [facility] TODAY. CM FAXED DISCHARGE INFORMATION AND UDPATE TO [facility] AT [phone]. NURSE REPORT TO BE CALLED TO [facility] NURSE AT [facility], . PT TO TRANSPORT VIA AMBULANCE. Warehouse Team Member: Zeke Perdomo DCP- Discharge Planning Updated by [id number]: Zeke Patel on 05/20/18 11:[address] Patient Name: WING ELIAS Admission Status: ER Accout number: [id number] Admission Date: 05-13-2018 : 1945 Admission Diagnosis:DISORIENTATION, UNSPECIFIED Attending: THAD GODWIN Current LOS: 7 Anticipated DC Date: 05-23-2018 Planned Disposition: Nursing Facility IDRIS Cert Primary Insurance: MEDICAID [place] PLANNED EXTERNAL PROVIDER: [facility], [facility] MEDICAID BED Discharge Planning Comments: CM SPOKE TO CAROLINE CRAIG OF [facility] WHO INFORMED CM THAT PT IS [facility] RESIDENT AT HER FACILITY AND THEY DO HAVE ABILITY OF PROVIDING IV ANTIBIOTICS AND ISOLATION ROOM IN FACILITY IF PICC LINE IS PLACED. CM SPOKE TO PT IN ROOM WHO VERIFIED HE HAS LIVED AT [facility] FOR "A LONG TIME" AND HE PLANS TO RETURN THERE AT DISCHARGE. CHOICE LISTING PROVIDED OF [facility] AND [facility] FAC[facility]. CHOICE LETTER PROVIDED AND EXPLAINED. PT IS NOT ABLE TO SIGN. CM PROVIDED AND DISCUSSED IMPORTANT MESSAGE FROM MEDICARE. CM FAXED HOSPITAL UPDATE TO [facility] AT [phone]. FOR DISCHARGE BACK TO [facility], FAX DISCHARGE INFORMATION TO [facility] AT [phone]; NURSE REPORT TO BE CALLED TO [facility] AT [phone]. PT TO TRANSPORT VIA AMBULANCE. Warehouse Team Member: Zeke Patel DCPIA - Discharge Planning Initial Assessment Updated by [id number]: Zeke Patel on 05/20/18 12:39 pm * Is the patient Alert and Oriented? Yes * How many steps to enter\\exit or inside your home? NONE * PCP DR. SCHUSTER * [facility] * Preadmission Environment Utilization Manager Shelter * Facility Name [facility] * ADLs Total Dependent * Equipment Other * Other Equipment ALL MEDICAL EQUIPMENT PROVIDED BY FACILITY * List name and contact numbers for known caregivers / representatives who currently or will assist patient after discharge: MOJGAN MACK, SISTER, * Verbal permission to speak to the caregivers and representatives has been obtained from the patient. N/A * Community resources currently utilized None * Please name any agencies selected above. NONE * Additional services required to return to the preadmission environment? No * Can the patient safely return to the preadmission environment? Yes * Has this patient been hospitalized within the prior 30 days at any hospital? No Coverage Notice Reviewer: [id number] Taylor Patel Notice Issued Date-Time: 05/20/2018 12:00 Notice Type: Patient Choice Letter Notice Delivered To: Patient Relationship to Patient: Microbiology Lab Technician Name: Delivery Method: HAND - Hand Delivered Kathrin Days: Prior Verbal Notification: Recipient Understood Notice: Yes Recipient Signature: Med Rec Note Co-signed by Attending: Coverage Notice Comment: [facility] Reviewer: [email or web address] Taylor Patel Notice Issued Date-Time: 05/20/2018 12:00 Notice Type: IM Discharge Notice Notice Delivered To: Patient Relationship to Patient: Microbiology Lab Technician Name: Delivery Method: HAND - Hand Delivered Kathrin Days: Prior Verbal Notification: Recipient Understood Notice: Yes Recipient Signature: Med Rec Note Co-signed by Attending: Coverage Notice Comment: Last DP export: 05/23/18 2:47 pm Patient Name: WING ELIAS Page [id number] at 1557 All edits/amendments must be made on the electronic document DICTATION DATE: 05/23/181556 [place] COUNSELOR: SUNITA 05/23/187 RPT#: [id number] DC DATE: STATUS: ADM IN [facility] [address] [place] [address] END OF REPORT
[2018-05-23 16:01] VITALS: BP 133/64
--- NOTE | 2018-05-23 17:48 | NUR ---
REPORT CALLED TO [facility] AND EMS CALLED AND THEY STATED IT WILL BE 30 TO 45 MIN.
--- NOTE | 2018-05-23 17:49 | NUR ---
PT UNABLE TO SIGN DISCAHRGE PAPERS.
--- NOTE | 2018-05-23 18:21 | NUR ---
TELEMETRY DC'D. DISCHARGE PAPERS GIVEN TO [facility] AND PT TAKEN BY [facility] WITH [facility].
== END 2018-05-23 18:21 | DRG 698 ==
LOC: D.ER 20:37 → D.M2 23:45 → D.SDCHOLD 05-17 12:13 → D.M2 05-17 12:25
PROVIDERS: Emergency Medicine; Family Medicine; Student in an Organized Health Care Education/Training Program; ADMIT Internal Medicine Nephrology; ATTEND Internal Medicine Nephrology
DX: T83.511A Infection and inflammatory reaction due to indwelling urethral catheter, initial encounter (principal); A41.9 Sepsis, unspecified organism; G93.41 Metabolic encephalopathy; N17.9 Acute kidney failure, unspecified; N13.2 Hydronephrosis with renal and ureteral calculous obstruction; N39.0 Urinary tract infection, site not specified; Y84.8 Other medical procedures as the cause of abnormal reaction of the patient, or of later complication, without mention of misadventure at the time of the procedure; I10 Essential (primary) hypertension; E78.5 Hyperlipidemia, unspecified

== ENCOUNTER 2018-06-06 06:37 | Day surgery (SDC) | payer MEDICAID ==
[~2018-06-06] VITALS: Ht 175.3 cm; Wt 77.1 kg
[~2018-06-06 06:37] MED LIST: ACETAMINOPHEN325 MG PO; ACIDOPHILUS-PE1 EACH PO; ALBUTEROL2.5 MG/3 M INH; AUGMENTIN 875-11 TAB PO; BAYER CHEWABLE81 MG PO; CENTRUM MEN'S1 EACH PO; FLOMAX0.4 MG PO; IBUPROFEN600 MG PO; LIPITOR20 MG PO; LOPRESSOR25 MG PO; MELATONIN 3 MG1 TAB PO; REMERON15 MG PO
[2018-06-06 07:38] VITALS: BP 87/62; Ht 175.3 cm; Wt 77.1 kg
[2018-06-06 07:46] LABS: HEMATOCRIT 37.5 % (42.0-54.0); HEMOGLOBIN 12.1 g/dL (13.5-17.5); MCH 31.8 pg (26.0-34.0); MCHC 32.3 g/dL (31.0-37.0); MCV 98.7 fL (80.0-100.0); RBC 3.8 10x6/uL (4.20-6.10); RDW 15.3 % (11.5-14.5); WBC 13.2 10x3/uL (4.8-10.8)
--- NOTE | 2018-06-06 10:25 | NUR ---
REC'D FROM [facility]. NO FAMILY AT BEDSIDE. SPEECH IS SLURRED. COLOSTOMY CDI TO RIGHT LOWER ABDOMEN. REMAINS NPO FOR LITH.
--- NOTE | 2018-06-06 10:55 | NUR ---
PATIENT MOANING AND GROANING. EXPLAINED HE IS ABOUT TO GO FOR ANOTHER PROCEDURE. DOES NOT ALWAYS SEEM TO UNDERSTAND.
--- NOTE | 2018-06-06 10:56 | OP ---
PATIENT NAME: WING ELIAS MEDICAL RECORD: [id number] :[birth year] LOCATION:D.OPS ADMISSION DATE: SURGEON: ZURDO MALHOTRA MD DATE OF OPERATION: 06/06/2018 SURGEON: Zurdo Malhotra MD ANESTHESIA: TIVA by Cristo Buckner CRNA. DIAGNOSIS: Right renal stones, 9 mm and 5 mm. PROCEDURES: Cystoscopy, bladder stone removal, right retrograde pyelogram, right ureteral stent insertion 6-Togolese x 24 cm with string attached. COMPLICATIONS: None. SPECIMEN: Bladder stone. BLOOD LOSS: None. CLINICAL HISTORY: This is a 73-year-old male with history of hypertension, rheumatic heart disease, toxic megacolon, status post colostomy and ileostomy and he has cerebral palsy. He lives in a prison. He has an indwelling Garcia catheter. I saw him in consultation in 05/15/2018 for large renal stones. He had a 9 mm stone in the right kidney and there was also a 5 mm stone at the right UV junction. Another smaller stone was also noted in the right kidney. He comes to have the stones treated today with insertion of a right ureteral stent and lithotripsy later today. He is not allergic to any antibiotics. He was given Ancef precision inspector to the OR. DESCRIPTION OF PROCEDURE: The patient was given IV sedation. He was then placed in the dorsal lithotomy position and prepped and draped. A 21-Togolese cystoscope with 30-degree lens was used for visualization. He has no penile urethral strictures. There is some lateral lobe obstruction on the prostate. Going into the bladder, there are no bladder tumors seen. He has single ureteral orifices on each side. A large quantity of stone flecks were seen and a stone was seen in the bladder. This was most likely the 5-mm stone in the distal ureter that he has passed out into the bladder. We placed grasping forceps into the bladder and removed the stone for chemical analysis. The stones in the kidneys were seen as a radiodensity. We inserted the 5-Togolese open-ended ureteral catheter into the right ureteral orifice with some difficulty. I used a sensor wire to help guide the catheter in. The distal ureter seemed to be quite tortuous and inflamed or strictured. We finally got the ureteral catheter to go past the stricture zone into more hydronephrotic area. Diluted contrast was injected for retrograde pyelogram. There was hydroureteronephrosis down to the stricture zone in the distal ureter. This may have been where the 5-mm stone had been lodged for some time and there may still be some ureteral edema in this location. We then passed the Sensor wire up to the renal pelvis. The ureteral catheter was then removed. Over the Sensor wire, we inserted the 6-Togolese x 24 cm ureteral stent. Once the stent was in correct position, the wire was completely withdrawn. The stent was pushed into the bladder using a pusher. The cystoscope was then removed. The string on the distal end of the stent remains attached. It hangs out of the urethra. It was tied to itself in a knot and cut shorter. We replaced a new Garcia catheter into the bladder. Later this afternoon, he will have lithotripsy of the 2 right OPERATIVE REPORT [id number] WING ELIAS renal stones. TRANSINT:[id number] Voice Confirmation ID: [id number] DOCUMENT ID: [id number] ZURDO MALHOTRA MD at 1056 CC: [id number] DICTATION DATE: 06/06/18 1002 PRODUCE FIELD MERCHANDISER: 06/06/18 1054 REG [facility] [address] [place] [address]
--- NOTE | 2018-06-06 11:35 | NUR ---
DOWN FOR LITHO PROCEDURE.
--- NOTE | 2018-06-06 12:35 | NUR ---
BACK FROM LITHO PROCEDURE. TRANSFERRED BACK TO BED.
--- NOTE | 2018-06-06 13:25 | NUR ---
FL TRAY AND GRAPE JUICE SERVED TO PATIENT. PT WAS FED BY NURSE. BROWNING TO GRAVITY WITH PINK TINGED URINE DRAINING IN BAG. COLOSTOMY TO RIGHT LOWER ABD INTACT.
--- NOTE | 2018-06-06 13:40 | NUR ---
WRITTEN AND VERBAL DC INST. GIVEN TO [facility] STAFF ALONG WITH FOLLOW UP APPOINTMENTS.
--- NOTE | 2018-06-06 13:45 | NUR ---
IV DC'D WITH CATHETER INTACT. TRANSFEERED TO PERSONAL WC.
--- NOTE | 2018-06-06 13:50 | NUR ---
DC'D TO NH WITH FACILITY STAFF VIA FACILITY VEHICLE. TAKEN TO VEHICLE VIA PERSONAL WC. STABLE AT TIME OF DC.
--- NOTE | 2018-06-06 15:34 | OP ---
PATIENT NAME: WING ELIAS MEDICAL RECORD: [id number] :[birth year] LOCATION:[place] ADMISSION DATE: SURGEON: JUD MALHOTRA MD DATE OF OPERATION: 06/06/2018 SURGEON: Jud Malhotra MD ANESTHESIA: TIVA by Milvia Flowers CRNA DIAGNOSIS: Right renal stones, 9 mm and 5 mm. PROCEDURE: Right ESWL times 3000 shocks. FINDINGS: Radiodense right renal stones. BLOOD LOSS: None. CLINICAL HISTORY: This is a 73-year-old male who has cerebral palsy and he lives in a longterm. He was found to have multiple right-sided renal stones including a ureteral stone, which he passed into the bladder. Earlier today, he had cystoscopy, removal of a 5-mm stone from the bladder, retrograde pyelogram, and insertion of a right ureteral stent. He still has 2 stones in the kidneys, which are 9 mm and 5 mm in size, and they are radiodense. Now, we are performing lithotripsy on these stones. Since he was given IV antibiotics earlier today, we did not give him any further IV antibiotics. DESCRIPTION OF PROCEDURE: He was placed on the treatment table. He was given IV sedation. The stones were localized in 2 planes and targeted. We initially started with a 9-mm stone. When that broke up, the remaining shocks were given to the smaller stone. Both stones were seen to have broken up. I will see the patient back in 2 weeks' time with a KUB. If the KUB indicates at that time that the stones have passed, then I will remove the stent by pulling on the string. TRANSINT:[id number] Voice Confirmation ID: [id number] DOCUMENT ID: [id number] JUD MALHOTRA MD at 1534 CC: [id number] DICTATION DATE: 06/06/18 1245 CHLORINATOR: 06/06/18 1526 [facility] 06/06/18 [place] [id number] [place] [id number]
[2018-06-11 16:09] LABS: CALCULI - CA OXALATE DIHYDRATE 25 % (()); CALCULI - CA OXALATE MONOHYDR 65 % (()); CALCULI - CALCIUM PHOSPHATE 10 % (()); CALCULI - COLOR Tan (()); CALCULI - SIZE 5x4x3 mm (()); CALCULI - WEIGHT 54.6 mg (())
== END 2018-06-06 13:50 | disposition home or self-care (01) ==
LOC: D.OPS 06:37
PROVIDERS: Anesthesiology; ATTEND Urology
DX: N20.0 Calculus of kidney (principal); N21.0 Calculus in bladder; I09.89 Other specified rheumatic heart diseases; I10 Essential (primary) hypertension; K59.31 Toxic megacolon; G80.9 Cerebral palsy, unspecified; Z01.812 Encounter for preprocedural laboratory examination

== ENCOUNTER → 2018-06-21 12:19 | Outpatient (CLI) | payer MEDICAID ==
[2018-06-06 07:38] VITALS: BMI 25.1
== END | disposition home or self-care (01) ==
LOC: D.RAD 06-20 09:00
PROVIDERS: ATTEND Urology
DX: N20.0 Calculus of kidney (principal)